=== PATIENT | female | born 1935 | race Caucasian/White ===

== ENCOUNTER 2016-12-18 17:18 | Emergency (ER) | payer MEDICARE ==
[~2016-12-18] VITALS: Ht 157.5 cm; Wt 44.0 kg
[~2016-12-18 17:18] MED LIST: ALPR0.5T3 PO; CHOL100025 CHEW; DIGO0.12 PO; FLUO20CA4 PO; LISI10TA3 PO; LOVA40TA PO; MAGICADU2 SWISH-SWAL; METO25TA3 PO; MULT-99; PANT40TA3 PO
[2016-12-18 17:25] VITALS: BP 156/68; PULSE 62; RESP 16; TEMP 98.6; O2SAT 98
[2016-12-18] MEDS ORDERED: SODIUM CHLORIDE 0.9% FLUSH 5 ML FLUSH IV FLUSH PRN (18:30)
[2016-12-18] MEDS ORDERED: FLUO40CA PO (18:36)
[2016-12-18] MEDS ORDERED: CLON0.5T PO ×2 (18:36)
[2016-12-18] MEDS ORDERED: MELA1TAB18 PO (18:36)
[2016-12-18] MEDS ORDERED: MELA5TAB15 PO (18:36)
--- NOTE | 2016-12-18 18:36 | PD ---
HPI Chief Complaint: Anxiety Time Seen by Provider: 18:17 Travel History International Travel<30 days: No Contact w/Intl Traveler<30days: No Traveled to known affect area: No History of Present Illness HPI 81-year-old female presents to the emergency department with her son and [id number] at bedside. Patient lives at [facility]. Apparently, the patient has been more agitated today, threatening staff. This is unusual for her. Patient has history of dementia, but is not usually aggressive. Apparently, they gave her a sleeping pill and she is calm now. They stated that the family could either take her to the hospital or they would [place] act her. Apparently, the staff at the facility requested her primary care physician to increase her clonazepam, but they did not receive an answer. The patient is alert. She is oriented to person and place, but not time. According to family, this is her baseline. She is cooperative with me. She states she has had some intermittent headaches, denies any headache at this time. No fevers or chills. No chest pain or shortness of breath. Patient denies any nausea, vomiting, diarrhea. Her [id number] does state that she was aggressive once in the past and she had a UTI. Therefore, they are concerned that she may have a UTI. He denied any injury or trauma. PFSH Past Medical History Hx Anticoagulant Therapy: No Arthritis: Yes Asthma: No Atrial Fibrillation: Yes (DENIES ) Autoimmune Disease: No Anxiety: Yes Depression: No Heart Rhythm Problems: Yes (AFIB) Cancer: No Cardiac Catheterization: No Cardiovascular Problems: Yes (IRREGULAR ) High Cholesterol: Yes Chest Pain: Yes Congestive Heart Failure: No COPD: No Cerebrovascular Accident: No Dementia: Yes Diabetes: No Diminished Hearing: No Endocrine: Yes Gastrointestinal Disorders: Yes GERD: Yes Glaucoma: No Genitourinary: Yes Headaches: Yes Hepatitis: No Hiatal Hernia: No Heparin Induced Thrombocytopen: No Hypertension: Yes Immune Disorder: No Implanted Vascular Access Dvce: No Kidney Stones: No Musculoskeletal: Yes 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.) Psychiatric: Yes Reproductive: No Respiratory: No Immunizations Current: Yes Migraines: Yes Myocardial Infarction: Yes Renal Failure: No Seizures: No Sleep Apnea: No Thyroid Disease: Yes Ulcer: No ?: Not Menopausal: Yes Ovarian Cysts: Yes Past Surgical History Abdominal Surgery: No Cardiac Surgery: No Cholecystectomy: Yes Coronary Artery Bypass Graft: No Ear Surgery: No Endocrine Surgery: No Eye Surgery: No Genitourinary Surgery: No Gynecologic Surgery: Yes (OVARIAN CYST 1964) Neurologic Surgery: No Oral Surgery: Yes (PERMANENT DENTURES) Thoracic Surgery: No Tonsillectomy: Yes Other Surgery: Yes Family History Family Myocardial Infarction: Yes Social History Alcohol Use: No (DENIES) Tobacco Use: No (QUIT 1991) Substance Use: No Allergies-Medications (Allergen,Severity, Reaction): Coded Allergies: shellfish derived (Unverified Allergy, Severe, REDNESS, 12/18/16) patient family states patient does not have a allergy to shellfish Reported Meds & Prescriptions Reported Meds & Active Scripts Active Reported Melatonin 10 Mg-1 Mg Tab 10 Mg PO BID PRN Melatonin 5 Mg Tab 3 Mg PO HS Clonazepam 0.5 Mg Tab 0.25 Mg PO DAILY Clonazepam 0.5 Mg Tab 0.5 Mg PO HS Fluoxetine (Fluoxetine HCl) 40 Mg Cap 40 Cap PO DAILY Pantoprazole (Pantoprazole Sodium) 40 Mg Tab 40 Mg PO DAILY Lovastatin 40 Mg Tab 60 Mg PO DAILY Vitamin D3 (Cholecalciferol) 1,000 Unit Chew 1,000 Units CHEW DAILY Vitamin D3 Complete (Multiple Vitamins W/ Minerals) 1 Tab Tab Digoxin 0.125 Mg Tab 0.125 Mg PO ,,S Lisinopril 10 Mg Tab 10 Mg PO DAILY Metoprolol Tartrate 25 Mg Tab 25 Mg PO BID Review of Systems Except as stated in HPI: all other systems reviewed are Neg Physical Exam Exam Limitations: Poor Historian Narrative GENERAL: Well-nourished, well-developed elderly female patient, ambulatory. Afebrile. Patient is alert and oriented to person and place, but not time. SKIN: Focused skin assessment warm/dry. HEAD: Normocephalic. Atraumatic. EYES: No scleral icterus. No injection or drainage. NECK: Supple, trachea midline. No JVD or lymphadenopathy. CARDIOVASCULAR: Regular rate and rhythm without murmurs, gallops, or rubs. RESPIRATORY: Breath sounds equal bilaterally. No accessory muscle use. Lungs sounds clear to auscultation. GASTROINTESTINAL: Abdomen soft, non-tender, nondistended. MUSCULOSKELETAL: No cyanosis, or edema. Bilateral upper and lower extremity strength 5/5. BACK: Nontender without obvious deformity. No CVA tenderness. Data Data Last Documented VS Vital Signs Date Time Temp Pulse Resp B/P (MAP) Pulse Ox O2 Delivery O2 Flow Rate FiO2 12/18/16 19:18 68 16 184/80 (114) 99 Room Air 12/18/16 17:25 98.6 Orders Orders Complete Blood Count With Diff (12/18/16 18:28) Comprehensive Metabolic Panel (12/18/16 18:28) Prothrombin Time / Inr (Pt) (12/18/16 18:28) Act Partial Throm Time (Ptt) (12/18/16 18:28) Urinalysis - C+S If Indicated (12/18/16 18:28) Ct Brain W/O Iv Contrast(Rout) (12/18/16 18:28) Blood Glucose (12/18/16:) Ecg Monitoring (12/18/16:) Iv Access Insert/Monitor (12/18/16 18:28) Cath For Specimen (12/18/16 18:28) Oximetry (12/18/16 18:28) Sodium Chloride 0.9% Flush (Ns Flush) (12/18/16 18:30) Digoxin (12/18/16 18:28) Urine Culture (12/18/16 19:18) Ceftriaxone Inj (Rocephin Inj) (12/18/16 19:45) Labs Laboratory Tests Test 12/18/16 18:55 12/18/16 19:18 White Blood Count 7.3 TH/MM3 Red Blood Count 4.55 MIL/MM3 Hemoglobin 12.8 GM/DL Hematocrit 38.3 % Mean Corpuscular Volume 84.1 FL Mean Corpuscular Hemoglobin 28.1 PG Mean Corpuscular Hemoglobin Concent 33.5 % Red Cell Distribution Width 13.8 % Platelet Count 174 TH/MM3 Mean Platelet Volume 8.5 FL Neutrophils (%) (Auto) 71.8 % Lymphocytes (%) (Auto) 19.7 % Monocytes (%) (Auto) 6.6 % Eosinophils (%) (Auto) 1.0 % Basophils (%) (Auto) 0.9 % Neutrophils # (Auto) 5.2 TH/MM3 Lymphocytes # (Auto) 1.4 TH/MM3 Monocytes # (Auto) 0.5 TH/MM3 Eosinophils # (Auto) 0.1 TH/MM3 Basophils # (Auto) 0.1 TH/MM3 CBC Comment DIFF FINAL Differential Comment Prothrombin Time 10.8 SEC Prothromb Time International Ratio 1.0 RATIO Activated Partial Thromboplast Time 25.5 SEC Blood Urea Nitrogen 15 MG/DL Creatinine 0.90 MG/DL Random Glucose 94 MG/DL Total Protein 6.8 GM/DL Albumin 4.1 GM/DL Calcium Level 8.8 MG/DL Alkaline Phosphatase 53 U/L Aspartate Amino Transf (AST/SGOT) 31 U/L Alanine Aminotransferase (ALT/SGPT) 28 U/L Total Bilirubin 0.5 MG/DL Sodium Level 139 MEQ/L Potassium Level 3.5 MEQ/L Chloride Level 103 MEQ/L Carbon Dioxide Level 29.4 MEQ/L Anion Gap 7 MEQ/L Estimat Glomerular Filtration Rate 60 ML/MIN Digoxin Level 0.8 NG/ML Urine Color YELLOW Urine Turbidity CLEAR Urine pH 7.0 Urine Specific [place] 1.010 Urine Protein TRACE mg/dL Urine Glucose (UA) NEG mg/dL Urine Ketones NEG mg/dL Urine Occult Blood MOD Urine Nitrite POS Urine Bilirubin NEG Urine Leukocyte Esterase SMALL Urine RBC 0-3 /hpf Urine WBC 15-19 /hpf Urine WBC Clumps FEW Urine Squamous Epithelial Cells 0-5 /hpf Urine Bacteria MANY /hpf Microscopic Urinalysis Comment CATH-CULTURE IND MDM Medical Decision Making Medical Screen Exam Complete: Yes Emergency Medical Condition: Yes Medical Record Reviewed: Yes Interpretation(s) CT of the brain - CONCLUSION: Normal examination for a patient of this age. No significant change has occurred. Differential Diagnosis Dementia versus UTI versus electrolyte abnormality versus intracranial abnormality Narrative Course 81-year-old female presents to the emergency department with her son and [id number] for evaluation of aggressive, threatening behavior today at her facility. The patient does not remember this saying cannot give any further detail. She is cooperative and calm with me. CBC, CMP, digoxin level, PTT, PT/ INR, UA are ordered and pending. CT of the brain is ordered and pending. CBC shows no acute abnormality. CMP shows no acute abnormality. Digoxin level is 0.8. Coags are unremarkable. UA shows moderate occult blood, positive nitrate, small leukocyte esterase, 15-19 WBC, [address] of the brain is normal. Patient has been calm and cooperative since being in the emergency department. BMP had any behavioral issues with the patient. Patient is given Rocephin 1 g IV for UTI. She'll be discharged with a prescription for Keflex for UTI. She is to follow-up with her primary care physician or return here for any acute worsening of symptoms. Her family members verbalizes agreement and understanding. The patient was discharged in stable condition with instructions, including return instructions and follow up instructions. Diagnosis Primary Impression: Urinary tract infection Qualified Codes: N30.01 - Acute cystitis with hematuria Additional Impression: Dementia Qualified Codes: F03.91 - Unspecified dementia with behavioral disturbance Referrals: Primary Care Physician 1 day Patient Instructions: Dementia (ED), General Instructions, Urinary Tract Infection in Women (ED) Additional Instructions: Take antibiotic as directed until gone. Follow-up with your primary care physician. Return to the emergency department for any acute worsening of symptoms. Med/Other Pt SpecificInfo: Prescription(s) given Scripts Cephalexin (Keflex) 500 Mg Capsule 500 MG PO Q8H for Infection for 7 Days, #21 CAP 0 Refills Prov: Barbara Paulson 12/18/16 Disposition: 01 DISCHARGE HOME Condition: Stable Barbara Paulson Dec 18, 2016 18:36
[2016-12-18 18:48] VITALS: BP 174/86; PULSE 57; RESP 18; O2SAT 97
[2016-12-18 19:05] LABS: AUTOMATED NEUTROPHIL # 5.2 TH/MM3 (1.8-7.7); BASOPHIL # 0.1 TH/MM3 (0-0.2); BASOPHIL % 0.9 % (0.0-2.0); EOSINOPHIL # 0.1 TH/MM3 (0-0.4); HEMATOCRIT 38.3 % (35.0-46.0); HEMO FLAGS DIFF FINAL; LYMPH % 19.7 % (9.0-44.0); LYMPHOCYTE # 1.4 TH/MM3 (1.0-4.8); MEAN CELL VOLUME 84.1 FL (80.0-100.0); MEAN CORPUSCULAR HEMOGLOBIN 28.1 PG (27.0-34.0); MEAN CORPUSCULAR HGB CONC 33.5 % (32.0-36.0); MONO % 6.6 % (0.0-8.0); NEUT % 71.8 % (16.0-70.0); PLATELET COUNT 174 TH/MM3 (150-450); RED BLOOD COUNT 4.55 MIL/MM3 (4.00-5.30); RED CELL DISTRIBUTION WIDTH 13.8 % (11.6-17.2); WHITE BLOOD COUNT 7.3 TH/MM3 (4.0-11.0)
[2016-12-18 19:14] LABS: CHLORIDE 103 MEQ/L (98-107); POTASSIUM 3.5 MEQ/L (3.5-5.1); SODIUM (NA) 139 MEQ/L (136-145)
[2016-12-18 19:17] LABS: ANION GAP 7 MEQ/L (5-15); BICARBONATE 29.4 MEQ/L (21.0-32.0)
[2016-12-18 19:18] VITALS: BP 184/80; PULSE 68; RESP 16; O2SAT 99
[2016-12-18 19:18] LABS: BLOOD UREA NITROGEN 15 MG/DL (7-18)
[2016-12-18 19:19] LABS: APTT (PATIENT) 25.5 SEC (24.3-30.1); PROTHROMBIN TIME - PATIENT 10.8 SEC (9.8-11.6)
[2016-12-18 19:20] LABS: ALT (GPT) 28 U/L (10-53)
[2016-12-18 19:21] LABS: AST (GOT) 31 U/L (15-37); GLOMERULAR FILTRATION RATE 60 ML/MIN (>89)
[2016-12-18 19:22] LABS: TOTAL BILIRUBIN ADULT 0.5 MG/DL (0.2-1.0)
[2016-12-18 19:23] LABS: ALKALINE PHOSPHATASE 53 U/L (45-117)
[2016-12-18 19:25] LABS: BLOOD, URINE MOD (NEG); GLUCOSE,URINE NEG (NEG); KETONE, URINE NEG (NEG); NITRITE,URINE POS (NEG)
[2016-12-18 19:31] LABS: URINE COLOR YELLOW (YELLW/STRAW)
[2016-12-18 19:32] LABS: BACTERIA, URINE MANY /hpf; COMMENT (UR) CATH-CULTURE IND; CULTURE IF INDICATED CATH CULTURE IND; RBC, URINE 0-3 /hpf (0-3); SQUAMOUS EPITHELIAL CELL URINE 0-5 /hpf (0-5); WBC, URINE 15-19 /hpf (0-5)
[2016-12-18 19:35] LABS: DIGOXIN 0.8 NG/ML (0.8-2.0)
[2016-12-18] MEDS ORDERED: cefTRIAXone INJ 1,000 MG in SODIUM CHLORIDE 0.9% INJ 100 ML IV ONE (19:45)
--- NOTE | 2016-12-18 19:49 | RADRPT ---
EXAM DATE/TIME: 12/18/2016 19:19 [place] COMPARISON: CT BRAIN W/O CONTRAST, October 29, 2015, 12:52. INDICATIONS : Altered mental status. RADIATION DOSE: 54.90 CTDIvol (mGy) MEDICAL HISTORY : Hypertension. SURGICAL HISTORY : None. ENCOUNTER: Initial ACUITY: 1 day PAIN SCALE: 0/10 LOCATION: cranial TECHNIQUE: Multiple contiguous axial images were obtained of the head. Using automated exposure control and adj ustment of the mA and/or kV according to patient size, radiation dose was kept as low as reasonably a chievable to obtain optimal diagnostic quality images. DICOM format image data is available electro nically for review and comparison. FINDINGS: CEREBRUM: The ventricles are normal for age. There are stable bilateral cortical atrophy. No evidence of midlin e shift, mass lesion, hemorrhage or acute infarction. No extra-axial fluid collections are seen. POSTERIOR FOSSA: The cerebellum and brainstem are intact. The 4th ventricle is midline. The cerebellopontine angle i s unremarkable. EXTRACRANIAL: The visualized portion of the orbits is intact. SKULL: The calvaria is intact. No evidence of skull fracture. CONCLUSION: Normal examination for a patient of this age. No significant change has occurred. Mendoza Keith MD on December 18, 2016 at 19:47 Board Certified Radiologist. This report was verified electronically.
[2016-12-18] MEDS ORDERED: CEPH-460 PO (19:58)
[2016-12-18 20:28] VITALS: BP 161/77; TEMP 98
== END 2016-12-18 20:57 | disposition home or self-care (01) ==
LOC: PHED 17:18
DX: N30.01 Acute cystitis with hematuria (principal); F03.91 Unspecified dementia, unspecified severity, with behavioral disturbance; I10 Essential (primary) hypertension; E78.00 Pure hypercholesterolemia, unspecified; I48.91 Unspecified atrial fibrillation; A49.8 Other bacterial infections of unspecified site
CPT/HCPCS: 70450; 80053; 80162; 81001; 85025; 85610; 85730; 87077; 87086; 87186; 96365; 99285; J0696; P9612

== ENCOUNTER 2016-12-21 21:17 | Emergency (ER) | payer MEDICARE ==
[~2016-12-21] VITALS: Ht 157.5 cm; Wt 44.0 kg
[~2016-12-21 21:17] MED LIST changes: -ALPR0.5T3 PO; +CEPH-460 PO; +CLON0.5T PO; -FLUO20CA4 PO; +FLUO40CA PO; -MAGICADU2 SWISH-SWAL; +MELA1TAB18 PO; +MELA5TAB15 PO
[2016-12-21 21:28] VITALS: BP 141/65; PULSE 64; RESP 18; TEMP 99; O2SAT 96
--- NOTE | 2016-12-21 23:06 | PD ---
HPI Chief Complaint: Altered Mental Status Time Seen by Provider: 22:25 Travel History International Travel<30 days: No Contact w/Intl Traveler<30days: No Traveled to known affect area: No History of Present Illness HPI The patient is an 81-year-old female, Former[facility] patient of Dr. Mitch Garcia who exhibited aggressive behavior at the [facility] for the last week. The patient was seen last Friday, 3 days ago, for this and a urinary tract infection was found and she was treated for this. This apparently did not result in resolution of her aggressive behavior. The shelter does not want to take the patient back unless they have a when necessary Xanax prescription. Apparently, the family/[facility] could not contact Dr. Mitch Garcia. PFS Past Medical History Hx Anticoagulant Therapy: No Arthritis: Yes Asthma: No Atrial Fibrillation: Yes (DENIES ) Autoimmune Disease: No Anxiety: Yes Depression: No Heart Rhythm Problems: Yes (AFIB) Cancer: No Cardiac Catheterization: No Cardiovascular Problems: Yes (HTN) High Cholesterol: Yes Chest Pain: Yes Congestive Heart Failure: No COPD: No Cerebrovascular Accident: No Dementia: Yes Diabetes: No Diminished Hearing: No Endocrine: Yes Gastrointestinal Disorders: Yes GERD: Yes Glaucoma: No Genitourinary: Yes Headaches: Yes Hepatitis: No Hiatal Hernia: No Heparin Induced Thrombocytopen: No Hypertension: Yes Immune Disorder: No Implanted Vascular Access Dvce: No Kidney Stones: No Medical other: Yes (alzheimers) Musculoskeletal: Yes 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.) Psychiatric: Yes Reproductive: No Respiratory: No Immunizations Current: Yes Migraines: Yes Myocardial Infarction: Yes Renal Failure: No Seizures: No Sleep Apnea: No Thyroid Disease: Yes Ulcer: No Tetanus Vaccination: < 5 Years Influenza Vaccination: No ?: Not Menopausal: Yes Ovarian Cysts: Yes Past Surgical History Abdominal Surgery: No Cardiac Surgery: No Cholecystectomy: Yes Coronary Artery Bypass Graft: No Ear Surgery: No Endocrine Surgery: No Eye Surgery: No Genitourinary Surgery: No Gynecologic Surgery: Yes (OVARIAN CYST 1964) Neurologic Surgery: No Oral Surgery: Yes (PERMANENT DENTURES) Thoracic Surgery: No Tonsillectomy: Yes Other Surgery: Yes Family History Family Myocardial Infarction: Yes Social History Alcohol Use: No (DENIES) Tobacco Use: No (QUIT 1991) Substance Use: No Allergies-Medications (Allergen,Severity, Reaction): Coded Allergies: shellfish derived (Unverified Allergy, Severe, REDNESS, 12/21/16) patient family states patient does not have a allergy to shellfish Reported Meds & Prescriptions Reported Meds & Active Scripts Active Reported Melatonin 10 Mg-1 Mg Tab 10 Mg PO BID PRN Melatonin 5 Mg Tab 3 Mg PO HS Clonazepam 0.5 Mg Tab 0.25 Mg PO DAILY Clonazepam 0.5 Mg Tab 0.5 Mg PO HS Fluoxetine (Fluoxetine HCl) 40 Mg Cap 40 Cap PO DAILY Pantoprazole (Pantoprazole Sodium) 40 Mg Tab 40 Mg PO DAILY Lovastatin 40 Mg Tab 60 Mg PO DAILY Vitamin D3 (Cholecalciferol) 1,000 Unit Chew 1,000 Units CHEW DAILY Vitamin D3 Complete (Multiple Vitamins W/ Minerals) 1 Tab Tab Digoxin 0.125 Mg Tab 0.125 Mg PO T,,S Lisinopril 10 Mg Tab 10 Mg PO DAILY Metoprolol Tartrate 25 Mg Tab 25 Mg PO BID Review of Systems Except as stated in HPI: all other systems reviewed are Neg Physical Exam Narrative GENERAL: The patient is alert but disoriented to year which is normal for this patient. She is cooperative and does not appear to be aggressive. Her vital signs show temperature 99.0 but otherwise normal. SKIN: Focused skin assessment warm/dry. HEAD: Atraumatic. Normocephalic. Neither raccoon eyes or pitts sign is present. EYES: Pupils equal and round. No scleral icterus. No injection or drainage. ENT: No nasal bleeding or discharge. Mucous membranes pink and moist. There is no hemotympanum present. NECK: Trachea midline. No JVD. There is no meningismus CARDIOVASCULAR: Regular rate and rhythm. No murmur appreciated. RESPIRATORY: No accessory muscle use. Clear to auscultation. Breath sounds equal bilaterally. GASTROINTESTINAL: Abdomen soft, non-tender, nondistended. Hepatic and splenic margins not palpable. The bladder appears very distended. MUSCULOSKELETAL: No obvious deformities. No clubbing. No cyanosis. No edema. NEUROLOGICAL: Awake and alert. No obvious cranial nerve deficits. Motor grossly within normal limits. Normal speech. PSYCHIATRIC: Appropriate mood and affect; insight and judgment normal. Data Data Last Documented VS Vital Signs Date Time Temp Pulse Resp B/P (MAP) Pulse Ox O2 Delivery O2 Flow Rate FiO2 12/21/16 21:28 99.0 64 18 141/65 (90) 96 Orders Orders Complete Blood Count With Diff (12/21/16 22:59) Comprehensive Metabolic Panel (12/21/16 22:59) Urinalysis - C+S If Indicated (12/21/16 22:59) MDM Medical Decision Making Medical Screen Exam Complete: Yes Emergency Medical Condition: Yes Medical Record Reviewed: Yes Differential Diagnosis Hypertensive urgency, asymptomatic blood pressure elevation, viral gastroenteritis, colitis, dehydration Narrative Course The patient's dehydration appears minimal. Her blood pressure sitting up and, after walking around is 187/89. Her nausea has subsided with Zofran. We will not adjust her blood pressure here in the emergency department, she is to go to Dr. De La Fuente to have her blood pressure regulated. Diagnosis Primary Impression: Viral gastroenteritis Additional Impression: Elevated blood pressure reading Additional Instructions: As we discussed, follow-up with Dr. Baxter to have your blood pressure regulated. He apparently is working hard on this and trying different things, you are difficult patient because you have so many allergies to these medications. The Zofran is one tablet every 6 hours as needed for nausea. Med/Other Pt SpecificInfo: Prescription(s) given Scripts Ondansetron (Zofran) 4 Mg Tab 4 MG PO Q6HR Y for NAUSEA OR VOMITING, #28 TAB 0 Refills Prov: Dieter Vázquez MD 12/21/16 Disposition: 01 DISCHARGE HOME Condition: Stable Dieter Vázquez MD Dec 21, 2016 23:06
[2016-12-21] MEDS ORDERED: ZOFR4TAB PO (23:17)
[2016-12-21 23:37] LABS: BLOOD, URINE MOD (NEG); GLUCOSE,URINE NEG (NEG); KETONE, URINE NEG (NEG); NITRITE,URINE NEG (NEG); PH, URINE 6.5 (5.0-8.5)
[2016-12-21 23:40] LABS: AUTOMATED NEUTROPHIL # 5.5 TH/MM3 (1.8-7.7); BASOPHIL % 0.5 % (0.0-2.0); EOSINOPHIL # 0.1 TH/MM3 (0-0.4); HEMATOCRIT 36.9 % (35.0-46.0); HEMO FLAGS DIFF FINAL; LYMPH % 19.3 % (9.0-44.0); LYMPHOCYTE # 1.5 TH/MM3 (1.0-4.8); MEAN CELL VOLUME 84.6 FL (80.0-100.0); MEAN CORPUSCULAR HEMOGLOBIN 28.8 PG (27.0-34.0); MEAN CORPUSCULAR HGB CONC 34.1 % (32.0-36.0); MONO % 6.7 % (0.0-8.0); NEUT % 72.5 % (16.0-70.0); PLATELET COUNT 176 TH/MM3 (150-450); RED BLOOD COUNT 4.37 MIL/MM3 (4.00-5.30); RED CELL DISTRIBUTION WIDTH 14.1 % (11.6-17.2); WHITE BLOOD COUNT 7.6 TH/MM3 (4.0-11.0)
--- NOTE | 2016-12-21 23:45 | PD ---
HPI Chief Complaint: Altered Mental Status Time Seen by Provider: 22:25 Travel History International Travel<30 days: No Contact w/Intl Traveler<30days: No Traveled to known affect area: No History of Present Illness HPI The patient is an 81-year-old female, [facility] patient of Dr. Mitch Garcia, who exhibited aggressive behavior at the RETIREMENT, [facility], for the last week. The patient was seen last Friday for the same thing and the urinary tract infection was found and she was treated for this. This apparently did not resolved and resolution of her aggressive behavior. The senior living does not want to take the patient back unless they have a when necessary Xanax prescription. Apparently, the family/RETIREMENT could not contact Dr. Mitch Garcia. The patient does have a history of dementia. PFSH Past Medical History Hx Anticoagulant Therapy: No Arthritis: Yes Asthma: No Atrial Fibrillation: Yes (DENIES ) Autoimmune Disease: No Anxiety: Yes Depression: No Heart Rhythm Problems: Yes (AFIB) Cancer: No Cardiac Catheterization: No Cardiovascular Problems: Yes (HTN) High Cholesterol: Yes Chest Pain: Yes Congestive Heart Failure: No COPD: No Cerebrovascular Accident: No Dementia: Yes Diabetes: No Diminished Hearing: No Endocrine: Yes Gastrointestinal Disorders: Yes GERD: Yes Glaucoma: No Genitourinary: Yes Headaches: Yes Hepatitis: No Hiatal Hernia: No Heparin Induced Thrombocytopen: No Hypertension: Yes Immune Disorder: No Implanted Vascular Access Dvce: No Kidney Stones: No Medical other: Yes (alzheimers) Musculoskeletal: Yes 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.) Psychiatric: Yes Reproductive: No Respiratory: No Immunizations Current: Yes Migraines: Yes Myocardial Infarction: Yes Renal Failure: No Seizures: No Sleep Apnea: No Thyroid Disease: Yes Ulcer: No Tetanus Vaccination: < 5 Years Influenza Vaccination: No ?: Not Menopausal: Yes Ovarian Cysts: Yes Past Surgical History Abdominal Surgery: No Cardiac Surgery: No Cholecystectomy: Yes Coronary Artery Bypass Graft: No Ear Surgery: No Endocrine Surgery: No Eye Surgery: No Genitourinary Surgery: No Gynecologic Surgery: Yes (OVARIAN CYST 1964) Neurologic Surgery: No Oral Surgery: Yes (PERMANENT DENTURES) Thoracic Surgery: No Tonsillectomy: Yes Other Surgery: Yes Family History Family Myocardial Infarction: Yes Social History Alcohol Use: No (DENIES) Tobacco Use: No (QUIT 1991) Substance Use: No Allergies-Medications (Allergen,Severity, Reaction): Coded Allergies: shellfish derived (Unverified Allergy, Severe, REDNESS, 12/21/16) patient family states patient does not have a allergy to shellfish Reported Meds & Prescriptions Reported Meds & Active Scripts Active Zofran (Ondansetron HCl) 4 Mg Tab 4 Mg PO Q6HR PRN Reported Melatonin 10 Mg-1 Mg Tab 10 Mg PO BID PRN Melatonin 5 Mg Tab 3 Mg PO HS Clonazepam 0.5 Mg Tab 0.25 Mg PO DAILY Clonazepam 0.5 Mg Tab 0.5 Mg PO HS Fluoxetine (Fluoxetine HCl) 40 Mg Cap 40 Cap PO DAILY Pantoprazole (Pantoprazole Sodium) 40 Mg Tab 40 Mg PO DAILY Lovastatin 40 Mg Tab 60 Mg PO DAILY Vitamin D3 (Cholecalciferol) 1,000 Unit Chew 1,000 Units CHEW DAILY Vitamin D3 Complete (Multiple Vitamins W/ Minerals) 1 Tab Tab Digoxin 0.125 Mg Tab 0.125 Mg PO T,,S Lisinopril 10 Mg Tab 10 Mg PO DAILY Metoprolol Tartrate 25 Mg Tab 25 Mg PO BID Review of Systems Except as stated in HPI: all other systems reviewed are Neg Physical Exam Narrative GENERAL: The patient is alert, disoriented to year which is typical for this patient in no apparent distress. She is cooperative. He does answer questions quickly and appropriately. She does not appear aggressive. Her vital signs show temperature of 99.0 but otherwise normal. SKIN: Focused skin assessment warm/dry. HEAD: Atraumatic. Normocephalic. Neither raccoon eyes or pitts sign is present. EYES: Pupils equal and round. No scleral icterus. No injection or drainage. ENT: No nasal bleeding or discharge. Mucous membranes pink and moist. There is no hemotympanum present. NECK: Trachea midline. No JVD. CARDIOVASCULAR: Regular rate and rhythm. No murmur appreciated. RESPIRATORY: No accessory muscle use. Clear to auscultation. Breath sounds equal bilaterally. GASTROINTESTINAL: Abdomen soft, non-tender, nondistended. Hepatic and splenic margins not palpable. The bladder appears very distended. No guarding or rebound is present. MUSCULOSKELETAL: No obvious deformities. No clubbing. No cyanosis. No edema. NEUROLOGICAL: Awake and alert. No obvious cranial nerve deficits. Motor grossly within normal limits. Normal speech. PSYCHIATRIC: Appropriate mood and affect; insight and judgment normal. Data Data Last Documented VS Vital Signs Date Time Temp Pulse Resp B/P (MAP) Pulse Ox O2 Delivery O2 Flow Rate FiO2 12/22/16 00:04 55 14 96 Room Air 12/21/16 21:28 99.0 141/65 (90) Orders Orders Complete Blood Count With Diff (12/21/16 22:59) Comprehensive Metabolic Panel (12/21/16 22:59) Urinalysis - C+S If Indicated (12/21/16 22:59) Ed Discharge Order (12/21/16 23:19) Labs Laboratory Tests Test 12/21/16 23:20 White Blood Count 7.6 TH/MM3 Red Blood Count 4.37 MIL/MM3 Hemoglobin 12.6 GM/DL Hematocrit 36.9 % Mean Corpuscular Volume 84.6 FL Mean Corpuscular Hemoglobin 28.8 PG Mean Corpuscular Hemoglobin Concent 34.1 % Red Cell Distribution Width 14.1 % Platelet Count 176 TH/MM3 Mean Platelet Volume 9.0 FL Neutrophils (%) (Auto) 72.5 % Lymphocytes (%) (Auto) 19.3 % Monocytes (%) (Auto) 6.7 % Eosinophils (%) (Auto) 1.0 % Basophils (%) (Auto) 0.5 % Neutrophils # (Auto) 5.5 TH/MM3 Lymphocytes # (Auto) 1.5 TH/MM3 Monocytes # (Auto) 0.5 TH/MM3 Eosinophils # (Auto) 0.1 TH/MM3 Basophils # (Auto) 0.0 TH/MM3 CBC Comment DIFF FINAL Differential Comment Urine Collection Type VOIDED Urine Color STRAW Urine Turbidity CLEAR Urine pH 6.5 Urine Specific [place] 1.004 Urine Protein NEG mg/dL Urine Glucose (UA) NEG mg/dL Urine Ketones NEG mg/dL Urine Occult Blood MOD Urine Nitrite NEG Urine Bilirubin NEG Urine Leukocyte Esterase NEG Urine RBC 0-3 /hpf Urine WBC 0-2 /hpf Urine Squamous Epithelial Cells 0-1 /hpf Microscopic Urinalysis Comment CULT NOT INDICATED Blood Urea Nitrogen 20 MG/DL Creatinine 0.97 MG/DL Random Glucose 93 MG/DL Total Protein 6.5 GM/DL Albumin 3.7 GM/DL Calcium Level 8.8 MG/DL Alkaline Phosphatase 53 U/L Aspartate Amino Transf (AST/SGOT) 31 U/L Alanine Aminotransferase (ALT/SGPT) 29 U/L Total Bilirubin 0.5 MG/DL Sodium Level 138 MEQ/L Potassium Level 3.5 MEQ/L Chloride Level 102 MEQ/L Carbon Dioxide Level 28.0 MEQ/L Anion Gap 8 MEQ/L Estimat Glomerular Filtration Rate 55 ML/MIN MDM Medical Decision Making Medical Screen Exam Complete: Yes Emergency Medical Condition: Yes Medical Record Reviewed: Yes Interpretation(s) The complete metabolic profile shows a BUN of 20, GFR 55 but is otherwise normal. The CBC is normal. The urine shows moderate occult blood but is otherwise normal. Differential Diagnosis Aggressive behavior From from: UTI, other infection, electrolyte disorder, hypo- /hyperglycemia, distended bladder Narrative Course It is possible that some of her aggressive behavior today may have been from a distended bladder. There was 700 cc in the bladder here in emergency department. The patient will be given a prescription for 0.25 mg Xanax every 12 hours #6. I discussed this with Dr. Mitch Garcia and she instructed me to write this. Diagnosis Primary Impression: Dementia with aggressive behavior Additional Instructions: As we discussed, follow-up with Dr. Mitch Garcia. Take the prescription into the [facility] that I wrote tonestrell[facility], we will give her the first dose here. Med/Other Pt SpecificInfo: Prescription(s) given Scripts Alprazolam (Xanax) 0.25 Mg Tab 0.25 MG PO Q12HR Y for ANXIETY, #6 TAB 0 Refills Prov: Dieter Vázquez MD 12/22/16 Ondansetron (Zofran) 4 Mg Tab 4 MG PO Q6HR Y for NAUSEA OR VOMITING, #28 TAB 0 Refills Prov: Dieter Vázquez MD 12/21/16 Disposition: 01 DISCHARGE HOME Condition: Stable Dieter Vázquez MD Dec 21, 2016 23:45
[2016-12-21 23:56] LABS: METHOD OF COLLECTION VOIDED; URINE COLOR STRAW (YELLW/STRAW); WBC, URINE 0-2 /hpf (0-5)
[2016-12-21 23:57] LABS: CHLORIDE 102 MEQ/L (98-107); COMMENT (UR) CULT NOT INDICATED; CULTURE IF INDICATED CULT NOT INDICATED; POTASSIUM 3.5 MEQ/L (3.5-5.1); RBC, URINE 0-3 /hpf (0-3); SODIUM (NA) 138 MEQ/L (136-145); SQUAMOUS EPITHELIAL CELL URINE 0-1 /hpf (0-5)
[2016-12-22 00:01] LABS: ANION GAP 8 MEQ/L (5-15); BLOOD UREA NITROGEN 20 MG/DL (7-18)
[2016-12-22 00:04] VITALS: PULSE 55; RESP 14; O2SAT 96
[2016-12-22 00:05] LABS: ALT (GPT) 29 U/L (10-53); AST (GOT) 31 U/L (15-37); GLOMERULAR FILTRATION RATE 55 ML/MIN (>89); TOTAL BILIRUBIN ADULT 0.5 MG/DL (0.2-1.0)
[2016-12-22 00:07] LABS: ALKALINE PHOSPHATASE 53 U/L (45-117)
[2016-12-22] MEDS ORDERED: ALPR.25 PO (00:46)
[2016-12-22 01:00] VITALS: BP 103/77; PULSE 60; RESP 14; O2SAT 97
[2016-12-22] MEDS ORDERED: ALPRAZolam 0.25 MG TAB PO ONE (01:00)
== END 2016-12-22 01:33 | disposition home or self-care (01) ==
LOC: PHED 21:17
DX: A08.4 Viral intestinal infection, unspecified (principal); I10 Essential (primary) hypertension; G30.9 Alzheimer's disease, unspecified
CPT/HCPCS: 80053; 81001; 85025; 99284